=== PATIENT | female | born 1985 | race Caucasian/White ===

== ENCOUNTER 2018-02-14 03:29 | Emergency (ER) | payer OTHER ==
[2018-02-14] MEDS ORDERED: METHOCARBAMOL 500 MG TABLET PO ONE (03:41)
[2018-02-14] MEDS ORDERED: IBUPROFEN 600 MG TABLET (FP) PO ONE ×2 (03:41→03:50)
[2018-02-14] MEDS ORDERED: METHOCARBAMOL 500 MG TABLET ONE (03:50)
[2018-02-14 04:06] VITALS: BP 112/68; PULSE 80; TEMP 97.9; BMI 25.8
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
== END 2018-02-14 05:03 | disposition home or self-care (01) ==
LOC: JER 03:29
DX: S46.911A Strain of unspecified muscle, fascia and tendon at shoulder and upper arm level, right arm, initial encounter (principal); Y04.0XXA Assault by unarmed brawl or fight, initial encounter; Y93.89 Activity, other specified; Y92.89 Other specified places as the place of occurrence of the external cause; Y99.8 Other external cause status; Y07.9 Unspecified perpetrator of maltreatment and neglect
CPT/HCPCS: 73030-TC-RT-FY; 99282-25

== ENCOUNTER 2021-05-12 10:33 | Observation (INO) | payer OTHER ==
[2021-05-12 10:53] VITALS: BMI 24.3
[2021-05-12] MEDS ORDERED: SODIUM CHLORIDE 1,000 ML IV STA (12:47)
[2021-05-12] MEDS ORDERED: ONDANSETRON 4 MG/2 ML VIAL IVPUSH ONE (13:10)
[2021-05-12] MEDS ORDERED: ONDANSETRON 4 MG/2 ML VIAL ONE (13:19)
[2021-05-12 13:47] LABS: BASO % 0.5 % (0-2.0); EOS % 2.8 % (0-4.5); HEMATOCRIT 39.3 % (32.4-45.2); HEMOGLOBIN 13.1 GM/dL (10.7-15.3); LYMPH % 21.8 % (8-40); MCHC 33.3 g/dl (32.0-36.0); MEAN CELL VOLUME 90.3 fl (80-96); MEAN PLT VOLUME 8.8 fl (7.5-11.1); MONO % 5.3 % (3.8-10.2); NEUT % 69.6 % (42.8-82.8); PLATELET COUNT 309 10^3/uL (134-434); RBC 4.35 M/mm3 (3.60-5.2); RDW 13.4 % (11.6-15.6); WHITE BLOOD COUNT 7.5 K/mm3 (4.0-10.0)
[2021-05-12 13:55] LABS: CHLORIDE 113 mmol/L (98-107); SODIUM 142 mmol/L (136-145)
[2021-05-12 13:58] LABS: ALBUMIN 3.8 g/dl (3.4-5.0); ANION GAP 4 MMOL/L (8-16); CALCIUM 9.1 mg/dL (8.5-10.1); CO2 25 mmol/L (21-32); MAGNESIUM 2.3 mg/dL (1.8-2.4)
[2021-05-12 13:59] LABS: GLUCOSE,RANDOM 86 mg/dL (74-106)
[2021-05-12 14:02] LABS: CREATININE 0.9 mg/dL (0.55-1.3); SGOT/AST 16 U/L (15-37); SGPT/ALT 22 U/L (13-61)
[2021-05-12 14:03] LABS: BILIRUBIN,TOTAL 0.6 mg/dL (0.2-1); TOT PROT 7.2 g/dl (6.4-8.2)
[2021-05-12 14:04] LABS: ALK PHOS 37 U/L (45-117)
[2021-05-12] MEDS: HEPARIN NA (PORCINE) 5,000 UNITS/ML 1ML VIAL SQ SCH ×2 (21:28→21:30)
[2021-05-12] MEDS ORDERED: ACETAMINOPHEN 325 MG TABLET (FP) ONE (21:43)
[2021-05-12] MEDS: ACETAMINOPHEN 325 MG TABLET (FP) PO PRN (21:49)
[2021-05-13] MEDS: ACETAMINOPHEN 325 MG TABLET (FP) PO PRN (07:53)
[2021-05-13 07:55] LABS: BASO % 1.1 % (0-2.0); HEMOGLOBIN 12.3 GM/dL (10.7-15.3); LYMPH % 33.9 % (8-40); MCH 30.2 pg (25.7-33.7); MCHC 33.2 g/dl (32.0-36.0); MEAN CELL VOLUME 90.9 fl (80-96); MEAN PLT VOLUME 9.1 fl (7.5-11.1); MONO % 6.9 % (3.8-10.2); NEUT % 53.1 % (42.8-82.8); PLATELET COUNT 254 10^3/uL (134-434); RBC 4.07 M/mm3 (3.60-5.2); RDW 13.3 % (11.6-15.6); WHITE BLOOD COUNT 4.9 K/mm3 (4.0-10.0)
[2021-05-13 11:44] LABS: ALBUMIN 3.1 g/dl (3.4-5.0); ALK PHOS 29 U/L (45-117); ANION GAP 4 MMOL/L (8-16); BILIRUBIN,TOTAL 0.3 mg/dL (0.2-1); CALCIUM 8.3 mg/dL (8.5-10.1); CHLORIDE 116 mmol/L (98-107); CHOLESTEROL 168 mg/dL (50-200); CO2 23 mmol/L (21-32); CREATININE 0.8 mg/dL (0.55-1.3); GLUCOSE,RANDOM 98 mg/dL (74-106); HDL CHOLESTEROL 47 mg/dL (40-60); LDL CHOLESTEROL (ONLY SJRH) 95 mg/dL (5-100); SGOT/AST 10 U/L (15-37); SGPT/ALT 17 U/L (13-61); SODIUM 143 mmol/L (136-145); TOT PROT 5.9 g/dl (6.4-8.2); TRIGLYCERIDES 49 mg/dL (0-150)
[2021-05-13] MEDS: PANTOPRAZOLE 40 MG TABLET PO SCH (12:27)
[2021-05-13] MEDS: HEPARIN NA (PORCINE) 5,000 UNITS/ML 1ML VIAL SQ SCH ×2 (12:27→21:31)
[2021-05-14] MEDS: HEPARIN NA (PORCINE) 5,000 UNITS/ML 1ML VIAL SQ SCH (09:49)
[2021-05-14] MEDS: PANTOPRAZOLE 40 MG TABLET PO SCH (09:49)
[2021-05-14] MEDS ORDERED: LORATADINE 10 MG TABLET PO ONE (12:15)
[2021-05-14 14:10] VITALS: BP 113/62; PULSE 90; TEMP 98.6
== END 2021-05-14 15:18 | disposition home or self-care (01) ==
LOC: JER 10:33 → UNDOADMOB 14:49 → JERBED 14:49 → INTOOBSV 17:28 → OBSVTOIN 17:28 → J4S 18:47 → JERBED 18:47 → J4S 05-13 15:23
PROVIDERS: ADMIT Family Medicine; ATTEND Family Medicine
PROC: 3E033GC Introduction of Other Therapeutic Substance into Peripheral Vein, Percutaneous Approach (ICD-10-PCS; principal; 2021-05-13)
PROC: 3E0337Z Introduction of Electrolytic and Water Balance Substance into Peripheral Vein, Percutaneous Approach (ICD-10-PCS; 2021-05-13)
DX: R55 Syncope and collapse (principal); I10 Essential (primary) hypertension; E78.5 Hyperlipidemia, unspecified; F41.9 Anxiety disorder, unspecified; F90.9 Attention-deficit hyperactivity disorder, unspecified type
CPT/HCPCS: 36415; 70450-TC; 71046-TC-FY; 72125-TC; 73030-TC-LT-FY; 80053; 80061; 82024; 82533; 82550; 83036; 83735; 84443; 84484; 84703; 85025; 93005; 93010; 93306-TC; 96361; 96374; 99285-25; C9803; G0378; J1644; U0003; U0005